=== PATIENT | male | born 2000 | race Hispanic/Latino ===

== ENCOUNTER 2021-12-14 18:13 | Emergency (ER) | payer OTHER ==
[~2021-12-14] VITALS: Ht 182.9 cm; Wt 136.1 kg
[2021-12-14] MEDS ORDERED: SULF1TAB42 PO (20:19)
[2021-12-14] MEDS ORDERED: SULFAMETHOX-TMP DS 800/160 TAB PO SCH (20:30)
[2021-12-14 20:36] VITALS: BP 122/56
== END 2021-12-14 20:56 | disposition home or self-care (01) ==
LOC: EDH 18:13
DX: L05.91 Pilonidal cyst without abscess (principal)
CPT/HCPCS: 10080